=== PATIENT | male | born 1955 | race Two or more races ===

== ENCOUNTER 2016-10-13 19:24 | Emergency (ER) | payer MEDICARE, MEDICAID ==
[~2016-10-13] VITALS: Ht 172.7 cm; Wt 72.6 kg
[~2016-10-13 19:24] MED LIST: CYCLOBENZAPRINE10 MG ORAL; IBUPROFEN600 MG ORAL
[2016-10-13] MEDS ORDERED: KEFLEX500 MG ORAL (20:30)
[2016-10-13 20:42] VITALS: BP 142/96
--- NOTE | 2016-10-13 23:32 | Emergency Room Report ---
History of Present Illness General Chief Complaint: Male Urogenital Problems Source: Patient Present Illness [facility] This 61-year-old male who presented after increased discharge from the skin lesion between his scrotum. Patient stated he had intermittent episodes where this lesion would bleed. Stated that he would intimately have some purulent drainage. The patient had the symptoms for several years. The patient reports not having this examined by his primary care physician. He denies any fever. Allergies: Coded Allergies: No Known Allergies (Unverified , 01/31/16) Patient History Past Medical History: see triage record Reviewed Nursing Documentation: PMH: Agreed, PSxH: Agreed Nursing Documentation-PM Past Medical History: No Stated History Hx Cardiac Problems: No Review of Systems All Other Systems: negative except mentioned in HPI Physical Exam Vital Signs Date Time Temp Pulse Resp B/P Pulse Ox O2 Delivery O2 Flow Rate FiO2 10/13/16 19:44 99.0 78 16 142/96 98 Room Air General Appearance: well appearing, no apparent distress, alert, GCS 15 Head: normocephalic, atraumatic ENT: hearing grossly normal, normal voice Neck: full range of motion, supple Respiratory: no respiratory distress, speaking full sentences Genitourinary: normal inspection, penis normal, other - nodular lesion to perineum Musculoskeletal: no calf tenderness Neurologic: normal gait Psychiatric: mood/affect normal Skin: normal inspection, normal color, no rash Medical Decision Making Diagnostic Impression: Primary Impression: Cyst ER Course Patient presented for skin lesion. Differential diagnosis included was not limited to fistula, hidradenitis, folliculitis, Fourniere's gangrene cysts among others. Patient's benign exam and does not appear to require any further imaging or laboratory testing at this time. The patient appears to have skin lesion consistent with a cyst The patient is advised to follow up with primary care doctor in 1-2 days. Patient is advised to return if any worsening condition or if any changes in status that are concerning. Last Vital Signs Date Time Temp Pulse Resp B/P Pulse Ox O2 Delivery O2 Flow Rate FiO2 10/13/16 20:42 99.0 16 142/96 98 Room Air 10/13/16 20:41 78 Status: improved Disposition: HOME, SELF-CARE Condition: Stable Scripts Cephalexin* (KEFLEX*) 500 Mg Capsule 500 MG ORAL Q6H, #28 CAP 0 Refills Prov: Dominick Pitts 10/13/16 Referrals: [facility]ERR[facility] (PCP) Patient Instructions: Folliculitis Dominick Pitts Oct 13, 2016 23:32
== END 2016-10-13 20:51 | disposition home or self-care (01) ==
LOC: EMR 20:39
DX: L98.9 Disorder of the skin and subcutaneous tissue, unspecified (principal)
CPT/HCPCS: 99283

== ENCOUNTER 2019-01-05 20:56 | Emergency (ER) | payer MEDICARE, MEDICAID ==
[~2019-01-05] VITALS: Ht 180.3 cm; Wt 83.0 kg
[~2019-01-05 20:56] MED LIST changes: +KEFLEX500 MG ORAL
[2019-01-05 21:10] VITALS: BP 105/72
--- NOTE | 2019-01-05 21:10 | NUR ---
ER Nurse Note: Pt walked in c/o dislodged stitches s/o LT testicular surgery on 01/03/2019. Per pt, there was slight drainage after sugery but bleeding got worse and pt noticed dislodged stitches. Pt stated no pain, no puss, no discharge. ERMD at pt side; will continue to montior.
--- NOTE | 2019-01-05 21:37 | Emergency Room Report ---
History of Present Illness General Chief Complaint: Wound Recheck/Suture Removal Source: Patient Present Illness HPI Is a 63-year-old male with a recent history of scrotal abscess requiring I&D. He had it done 3 days ago. He came in because his wound is draining. Couple of the stitches came out and now is open. No fever chills but just a little bit of blood. Minimal pain. No redness. Denies any other complaint. No trauma. Allergies: Coded Allergies: No Known Allergies (Unverified , 01/31/16) Patient History Past Medical History: see triage record, old chart reviewed Past Surgical History: none Pertinent Family History: none Social History: Denies: smoking Immunizations: other Reviewed Nursing Documentation: PMH: Agreed; PSxH: Agreed Nursing Documentation-PMH Past Medical History: No Stated History Hx Cardiac Problems: No Review of Systems Eye: Denies: eye pain, blurred vision ENT: Denies: ear pain, nose congestion, throat swelling Respiratory: Denies: cough, shortness of breath Cardiovascular: Denies: chest pain, palpitations Gastrointestinal: Denies: abdominal pain, diarrhea, nausea, vomiting Musculoskeletal: Denies: back pain, joint pain Skin: Denies: rash Neurological: Denies: headache, numbness Endocrine: Denies: increased thirst, increased urine Hematologic/Lymphatic: Denies: easy bruising All Other Systems: negative except mentioned in HPI Physical Exam Vital Signs Date Time Temp Pulse Resp B/P (MAP) Pulse Ox O2 Delivery O2 Flow Rate FiO2 01/05/19 21:01 97.5 83 18 105/72 (83) 95 Room Air Vitals normal Sp02 EP Interpretation: reviewed, normal General Appearance: well appearing, no apparent distress, alert Head: normocephalic, atraumatic Eyes: bilateral eye PERRL, bilateral eye EOMI ENT: hearing grossly normal, normal pharynx Neck: full range of motion, supple, no meningismus Respiratory: chest non-tender, lungs clear, normal breath sounds Cardiovascular #1: regular rate, rhythm, no murmur Gastrointestinal: normal bowel sounds, non tender, no mass, no organomegaly, no bruit, non-distended Genitourinary: other - His wound to the left scrotal area is healing well. No evidence of any infection. There is wound dehiscence at the inferior aspect measuring about 2 cm. Slight amount of bloody drainage. No pus. Musculoskeletal: back normal, gait/station normal, normal range of motion Neurologic: alert, oriented x3 Psychiatric: mood/affect normal Procedures Laceration/Wound Repair Laceration/Wound Repair : Consent: Verbal Wound Location: other - Scrotum Wound's Depth, Shape: linear Wound Length (cm): 2 Wound Explored: clean Irrigated w/ Saline (ccs): 500 Anesthesia: 1% Lidocaine Volume Anesthetic (ccs): 2 Wound Repaired With: sutures Suture Size/Type: 5:0, nylon Number of Sutures: 3 Patient Tolerated: Well Complications: None Medical Decision Making Diagnostic Impression: Primary Impression: Wound dehiscence, surgical Qualified Codes: T81.31XA - Disruption of external operation (surgical) wound , not elsewhere classified, initial encounter ER Course Patient with a wound dehiscence. No evidence of any infection. I resutured it. Will discharge home. Last Vital Signs Date Time Temp Pulse Resp B/P (MAP) Pulse Ox O2 Delivery O2 Flow Rate FiO2 01/05/19 21:10 97.5 83 18 105/72 95 Room Air Status: improved Disposition: HOME, SELF-CARE Condition: Stable Patient Instructions: Wound Check Additional Instructions: Follow-up with your surgeon as scheduled. Take your antibiotics. Keep wound clean. Return if symptoms worsen. Akil Ramires MD Jan 05, 2019 21:37
[2019-01-05 21:45] VITALS: BP 105/72
--- NOTE | 2019-01-05 21:45 | NUR ---
ER Nurse Note: Pt seen, treated, medically cleared for discharge by ERMD. Discharge instuctions given with repeat verbalization by pt. Emphasized to follow up with primay care provider and primary surgeon. All orders completed per ERMD orders. Pt a&ox4, VSS, no signs of distress. ID band removed. All questions answered per pt's questions. Pt left with all belongings, left with own transportation.
== END 2019-01-05 21:45 | disposition home or self-care (01) ==
LOC: EMR 21:34
DX: T81.31XA Disruption of external operation (surgical) wound, not elsewhere classified, initial encounter (principal); Y83.8 Other surgical procedures as the cause of abnormal reaction of the patient, or of later complication, without mention of misadventure at the time of the procedure; Y92.9 Unspecified place or not applicable
CPT/HCPCS: 99282

== ENCOUNTER 2019-08-30 08:50 | Emergency (ER) | payer MEDICARE, MEDICAID ==
[~2019-08-30] VITALS: Ht 180.3 cm; Wt 81.6 kg
[2019-08-30 09:00] VITALS: BP 120/88
[2019-08-30] MEDS ORDERED: Morphine Sulfate 4mg/ml Inj (IV USE ONLY) IVP ONE (09:00)
[2019-08-30] MEDS ORDERED: Omnipaque-300 100ml vial INJ PRN (09:00)
[2019-08-30] MEDS ORDERED: HYDROcodone/Acetamin 5/325 tab ORAL ONE ×2 (09:15→12:15)
--- NOTE | 2019-08-30 09:16 | Emergency Room Report ---
History of Present Illness General Chief Complaint: Back Pain-No Injury Source: Patient Present Illness HPI This patient is brought in by EMS. The patient states that about a week ago, he woke up with pain in his left mid back. He states that he had just been tolerating it thinking it would go away on its own. He had not been using any medications of any sort. No Tylenol or Motrin. He states that today he was using the restroom and he felt a pop in this location. He states the sound made was like when you popping knuckles. He states that since that time he has been in severe pain in that location. He states he has been unable to walk. The pain is aggravated by movement. He denies chest pain, shortness of breath, recent illness, trauma, weakness, tingling or numbness, loss of bowel or bladder control, difficulty walking. He states the pain is very localized and severe. He has no known injury. He has no other complaints. Allergies: Coded Allergies: No Known Allergies (Unverified , 01/31/16) COVID-19 Screening Contact w/high risk pt: No Recent Travel to affected area: No Experienced COVID-19 symptoms?: No COVID-19 Testing performed NATIONAL INSURANCE OFFICER: No Patient History Past Medical History: none, see triage record Past Surgical History: other - Gastric bypass Social History: Reports: alcohol use - Occasional; Denies: smoking, drug use Reviewed Nursing Documentation: PMH: Agreed; PSxH: Agreed Nursing Documentation-PMH Hx Cardiac Problems: No Review of Systems All Other Systems: negative except mentioned in HPI Physical Exam Vital Signs Date Time Temp Pulse Resp B/P (MAP) Pulse Ox O2 Delivery O2 Flow Rate FiO2 08/30/19 08:44 97.9 144 16 141/95 (110) 95 Room Air Sp02 EP Interpretation: reviewed, normal General Appearance: no apparent distress, alert, GCS 15, non-toxic Head: normocephalic, atraumatic Eyes: bilateral eye normal inspection, bilateral eye PERRL ENT: hearing grossly normal, normal pharynx, no angioedema, normal voice Neck: full range of motion, supple/symm/no masses Respiratory: chest non-tender, lungs clear, normal breath sounds, no respiratory distress, no retraction, no accessory muscle use, speaking full sentences Cardiovascular #1: regular rate, rhythm, no edema Gastrointestinal: normal bowel sounds, non tender, soft, non-distended, no guarding, no rebound Rectal: deferred Musculoskeletal: normal inspection, normal range of motion, gait/station normal , other - exquisitely TTP at the Lateral aspect of the inferior ribcage along the ribs. No mass noted. No skin changes. No Paraspinal m. tenderness. No spinous process tenderness. Neurologic: alert, motor strength/tone normal, oriented x3, sensory intact, responsive, speech normal Psychiatric: judgement/insight normal, memory normal, mood/affect normal, no suicidal/homicidal ideation Skin: no rash, normal color Medical Decision Making Diagnostic Impression: Primary Impression: Musculoskeletal back pain ER Course The patient had pain out of proportion to exam. Given the patient's age and the location of the pain being on the borderline of the chest and the abdomen, I feel that I should obtain a CT of both the chest and the abdomen. Patient also has a history of a gastric bypass and this makes him high risk for complications related to history of this procedure. CT of the chest/abdomen pelvis/spine showed no acute findings. There was some incidental disc protrusion that are not related or identified to be causing any physical exam findings. Overall, the patient's evaluation was benign. Based on history and physical exam in combination with the CT imaging, I am reassured that there is no emergency medical condition. I suspect the patient's symptoms are skull skeletal in etiology. The patient was instructed to follow-up closely with his primary care physician. The patient is given close return precautions and follow-up instructions. Laboratory Tests Test 08/30/19 09:05 White Blood Count 5.0 K/UL (4.8-10.8) Red Blood Count 3.88 M/UL (4.70-6.10) L Hemoglobin 13.8 G/DL (14.2-18.0) L Hematocrit 42.6 % (42.0-52.0) Mean Corpuscular Volume 110 FL (80-99) H Mean Corpuscular Hemoglobin 35.4 PG (27.0-31.0) H Mean Corpuscular Hemoglobin Concent 32.3 G/DL (32.0-36.0) Red Cell Distribution Width 14.1 % (11.6-14.8) Platelet Count 196 K/UL (150-450) Mean Platelet Volume 5.2 FL (6.5-10.1) L Neutrophils (%) (Auto) 57.3 % (45.0-75.0) Lymphocytes (%) (Auto) 32.1 % (20.0-45.0) Monocytes (%) (Auto) 8.7 % (1.0-10.0) Eosinophils (%) (Auto) 1.0 % (0.0-3.0) Basophils (%) (Auto) 1.0 % (0.0-2.0) Erythrocyte Sedimentation Rate 27 MM/HR (0-20) H Sodium Level 141 MMOL/L (136-145) Potassium Level 3.8 MMOL/L (3.5-5.1) Chloride Level 103 MMOL/L (98-107) Carbon Dioxide Level 24 MMOL/L (21-32) Anion Gap 14 mmol/L (5-15) Blood Urea Nitrogen 13 mg/dL (7-18) Creatinine 1.0 MG/DL (0.55-1.30) Estimated Glomerular Filtration Rate > 60 mL/min (>60) Glucose Level 126 MG/DL (74-106) H Calcium Level 8.8 MG/DL (8.5-10.1) Total Bilirubin 0.8 MG/DL (0.2-1.0) Aspartate Amino Transferase (AST) 33 U/L (15-37) Alanine Aminotransferase (ALT) 26 U/L (12-78) Alkaline Phosphatase 99 U/L (46-116) C-Reactive Protein, Quantitative 1.0 mg/dL (0.00-0.90) H Total Protein 7.5 G/DL (6.4-8.2) Albumin 3.7 G/DL (3.4-5.0) Globulin 3.8 g/dL Albumin/Globulin Ratio 1.0 (1.0-2.7) EKG Diagnostic Results Rate: normal Rhythm: NSR ST Segments: no acute changes Rhythm Strip Diag. Results EP Interpretation: yes Rate: 100's Rhythm: NSR, no PVC's, no ectopy, other - NSR and S.tachycardia CT/MRI/US Diagnostic Results CT/MRI/US Diagnostic Results : Imaging Test Ordered: CT chest/abd/pelvis/L-spine Impression No acute findings for all of these studies. See the official reports in electronic medical record. Last Vital Signs Date Time Temp Pulse Resp B/P (MAP) Pulse Ox O2 Delivery O2 Flow Rate FiO2 08/30/19 08:44 97.9 144 16 141/95 (110) 95 Room Air Status: improved Disposition: HOME, SELF-CARE Condition: Improved Scripts No Active Prescriptions or Reported Meds Patient Instructions: Back Pain, Adult Page Jorge DO Aug 30, 2019 09:16
[2019-08-30 09:36] LABS: HEMATOCRIT 42.6 % (42.0-52.0); HEMOGLOBIN 13.8 G/DL (14.2-18.0); LYMPHOCYTES % (AUTO) 32.1 % (20.0-45.0); MEAN CORPUSCULAR VOLUME 110 FL (80-99); MONOCYTES % (AUTO) 8.7 % (1.0-10.0); NEUTROPHILS % (AUTO) 57.3 % (45.0-75.0); PLATELET COUNT 196 K/UL (150-450); RED BLOOD COUNT 3.88 M/UL (4.70-6.10); RED CELL DISTRIBUTION WIDTH 14.1 % (11.6-14.8)
[2019-08-30 09:48] LABS: ANION GAP 14 mmol/L (5-15); BLOOD UREA NITROGEN 13 mg/dL (7-18); CALCIUM 8.8 MG/DL (8.5-10.1); CARBON DIOXIDE 24 MMOL/L (21-32); CHLORIDE 103 MMOL/L (98-107); POTASSIUM 3.8 MMOL/L (3.5-5.1); SODIUM 141 MMOL/L (136-145)
[2019-08-30 09:53] LABS: ALANINE AMINOTRANSFERASE 26 U/L (12-78); ALBUMIN 3.7 G/DL (3.4-5.0); ALKALINE PHOSPHATASE 99 U/L (46-116); ASPARTATE AMINO TRANSFERASE 33 U/L (15-37); BILIRUBIN,TOTAL 0.8 MG/DL (0.2-1.0)
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
[2019-08-30] MEDS ORDERED: ACETAMINOPHEN-1 EAC1 ORAL (11:53)
[2019-08-30] MEDS ORDERED: LIDODERM700 M1 TOPIC (11:53)
[2019-08-30 12:18] VITALS: BP 127/75
== END 2019-08-30 12:18 | disposition home or self-care (01) ==
LOC: EDBD 08:50 → EMR 09:10
DX: M54.9 Dorsalgia, unspecified (principal); Z98.84 Bariatric surgery status; R00.0 Tachycardia, unspecified
CPT/HCPCS: 36415; 71260; 72131; 74177; 80053; 85025; 85651; 86140; 93005; 96361; 96374; 99284; J7030; Q9967